=== PATIENT | male | born 1950 | race Caucasian/White ===

== ENCOUNTER 2016-08-24 19:39 | Emergency (ER) | payer OTHER, MEDICARE ==
[~2016-08-24] VITALS: Ht 182.9 cm; Wt 95.3 kg
[~2016-08-24 19:39] MED LIST: ALBUTEROL0.09 MG/A1 INH; CLINDAMYCIN HY300 MG PO; CYCLOBENZAPRINE10 M1 PO; DIAZEPAM2 M1 PO; FLEXERIL10 MG PO; IBUPROFEN600 M1 PO; MOTRIN 600 MG600 MG PO; OLANZAPINE10 MG PO; PREDNISONE 20MG20 MG PO; PRILOSEC OTC20 MG PO; TRAMADOL HCL50 M1 PO; TRAMADOL50 MG PO
[2016-08-24 20:22] LABS: ABSOLUTE BASOPHIL COUNT 0.1 /CUMM (0.0-0.2); ABSOLUTE EOSINOPHIL COUNT 0.5 /CUMM (0.0-0.7); ABSOLUTE GRANULOCYTE CT 6.1 /CUMM (1.4-6.5); ABSOLUTE MONOCYTE COUNT 0.7 /CUMM (0.10-0.60); BASOPHIL % 1.4 % (0.0-2.0); EOSINOPHIL % 5.1 % (0-5); GRANULOCYTE % 65.2 % (42.2-75.2); HEMATOCRIT 49.3 % (42-52); MEAN CORPUSCULAR HGB 31.2 PG (27.0-31.0); MEAN CORPUSCULAR HGB CONC 34.1 G/DL (33.0-37.0); MEAN CORPUSCULAR VOLUME 91.6 FL (80.0-94.0); MEAN PLATELET VOLUME 9.5 FL (7.4-10.4); PLATELET COUNT 158 /CUMM (130-400); RBC DISTRIBUTION WIDTH 13.5 % (11.5-14.5); RED BLOOD CELL CT 5.38 /CUMM (4.70-6.10); WHITE BLOOD CELL COUNT 9.3 /CUMM (4.8-10.8)
--- NOTE | 2016-08-24 20:43 | RADIOLOGY REPORT ---
EXAMINATION: XR CHEST CLINICAL INFORMATION: Cough. COMPARISON: CTA 06/22/2015. TECHNIQUE: 2 views of the chest were obtained. FINDINGS: Both lungs are hyperinflated without consolidation. There are increased bronchovascular markings probably chronic interstitial changes there is no pleural effusion. The heart size and pulmonary vascularity is normal. No gross bony abnormality seen. IMPRESSION: Emphysema with chronic interstitial changes without acute consolidation. Similar findings were seen on 06/22/2015.
--- NOTE | 2016-08-24 20:57 | ED DYSPNEA/ASTHMA COMPLAINT ---
History of Present Illness General Chief Complaint: Dyspnea (COPD, CHF, Other) Stated Complaint: SOB Source: patient, old records Exam Limitations: no limitations Vital Signs & Intake/Output Vital Signs & Intake/Output Vital Signs Date Time Temp Pulse Resp B/P Pulse O2 O2 Flow FiO2 Ox Delivery Rate 08/24 2151 93 08/25 1943 97.1 109 15 126/89 95 Room Air Allergies Coded Allergies: Penicillins (Severe, ANAPHYLAXIS 11/24/15) Sulfa (Sulfonamide Antibiotics) (Severe, TONGUE SWELLING, HIVES 11/24/15) penicillin G (Severe, ANAPHYLAXIS 11/24/15) codeine (TACHYCARDIA 11/24/15) Reconcile Medications Albuterol Sulfate (Proair Hfa) 90 MCG HFA.AER.AD 2 PUF INH Q4-6 PRN PRN DYSPNEA Albuterol Sulfate (Proair Hfa) 90 MCG HFA.AER.AD 2 PUF INH Q4-6 PRN PRN DYSPNEA Albuterol Sulfate (Albuterol Sulfate Hfa) 90 MCG HFA.AER.AD 2 PUFF INH Q4-6 PRN PRN SHORTNESS OF BREATH 90 MCG PER PUFF Clindamycin HCl 150 MG CAPSULE 1 CAP PO TID TOOTH FRACTURE Diazepam 2 MG TABLET 1 TAB PO BID PRN ANXIETY (Reported) Doxycycline Hyclate 100 MG TABLET 1 TAB PO BID BRONCHITIS Ibuprofen 600 MG TABLET 1 TAB PO Q6H PRN abdomial pain with food Olanzapine 10 MG TAB 1 TAB PO QAM MENTAL HEALTH (Reported) Olanzapine 10 MG TABLET 1 TAB PO QPM DEPRESSION/BIPOLAR (Reported) Oxycodone HCl/Acetaminophen (Percocet 5-325 MG Tablet) 5 MG-325 MG TABLET 1 TAB PO BID PRN PAIN Triage Note: PT TO ED FOR 3 DAYS OF NON PRODUCTIVE, DRY COUGH AND SOB. 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 Triage Nurses Notes Reviewed? yes Onset: Abrupt Duration: day(s): (3) Timing: multiple episodes today Severity: moderate Associated Symptoms: cough, SHORTNESS OF BREATH HPI: 66-year-old male who presents to the ER for chief complaint of sudden onset of upper nasal congestion. Denies any fever or chills. Denies feeling short of breath but admits to some chronic cough. He is a 1-1/2 pack per day smoker. No chest pain or palpitations. Denies any abdominal pain. Positive sick contacts at home with similar symptoms. Found to be wheezing in triage. History of PE in 2010 and just came off blood thinners 2 years ago. PE was as a result of a DVT secondary to sprain ankle. Denies any history of clotting disorders. Past History Travel History Traveled to [place] past 21 day No Medical History Any Pertinent Medical History? 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 No Review of Systems Review of Systems Constitutional: Denies: chills, fever. EENTM: Reports: nasal congestion. Respiratory: Reports: cough, short of breath. Cardiovascular: Denies: chest pain, palpitations, peripheral edema. GI: Denies: abdominal pain, diarrhea, nausea, vomiting. Genitourinary: Reports: no symptoms. Musculoskeletal: Reports: no symptoms. Skin: Denies: rash. Neurological/Psychological: Reports: no symptoms. Hematologic/Endocrine: Denies: bruising, bleeding, polyuria, polydipsia. Immunologic/Allergic: Denies: splenectomy. All Other Systems: Reviewed and Negative Physical Exam Physical Exam General Appearance: well developed/nourished, awake, mild distress Head: normal appearance Eyes: Bilateral: normal appearance, PERRL, pale conjunctivae. Ears, Nose, Throat: normal pharynx, normal ENT inspection, hearing grossly normal Neck: normal inspection, supple, full range of motion Respiratory: decreased breath sounds, accessory muscle use, wheezing Cardiovascular: tachycardia Peripheral Pulses: 2+ radial (R), 2+ radial (L) Gastrointestinal: soft, non-tender Extremities: normal inspection, normal capillary refill, normal range of motion, no edema Neurologic/Psych: awake, alert, oriented x 3 Skin: intact, normal color, warm/dry, cyanosis, diaphoresis, ecchymosis, jaundice, mottled, pallor, rash Core Measures ACS in differential dx? No Severe Sepsis Present: No Septic Shock Present: No Progress Differential Diagnosis: bronchitis, CHF, COPD, pulmonary embolism, pneumonia Plan of Care: Orders Procedure Date/time Status RT ED ORDERS 08/24 2113 Active RAPID VIRAL INFLUENZA A 08/24 2113 Complete THROAT CULTURE W/QUICK STREP 08/24 2113 Active URINALYSIS 08/25 2107 Complete TROPONIN LEVEL 08/25 1951 Complete COMPREHENSIVE METABOLIC PANEL 08/25 1951 Complete CBC WITHOUT DIFFERENTIAL 08/25 1951 Complete EKG 08/24 1944 Active Laboratory Tests 08/24/162126: Urine Color STRAW, Urine Clarity CLEAR, Urine pH 6.0, Ur Specific [place] <= 1.005, Urine Protein NEG, Urine Ketones NEG, Urine Nitrite NEG, Urine Bilirubin NEG, Urine Urobilinogen 0.2, Ur Leukocyte Esterase NEG, Ur Microscopic EXAM NOT REQUIRED, Urine Hemoglobin NEG, Urine Glucose NEG 08/24/162000: Anion Gap 15, Estimated GFR > 60, BUN/Creatinine Ratio 10.0, Glucose 103 H, Calcium 8.8, Total Bilirubin 1.3, AST 33, ALT 26, Alkaline Phosphatase 99, Troponin I < 0.01, Total Protein 7.7, Albumin 4.6, Globulin 3.1, Albumin/ Globulin Ratio 1.5, CBC w Diff NO MAN DIFF REQ, RBC 5.38, MCV 91.6, MCH 31.2 H, RDW 13.5, MPV 9.5, Gran % 65.2, Lymphocytes % 21.2, Monocytes % 7.1, Eosinophils % 5.1 H, Basophils % 1.4, Absolute Granulocytes 6.1, Absolute Lymphocytes 2.0, Absolute Monocytes 0.7 H, Absolute Eosinophils 0.5, Absolute Basophils 0.1, PUBS MCHC 34.1 Microbiology 08/24 2122 NASOPHARYN: Influenza Virus A & B Rapid Smear - COMP solumedrol, duoneb, cxr, labs, quick strep ordered 10:40 PM PATIENT FEELING BETTER AFTER TREATMENT. STABLE FOR DISCHARGE HOME. IMPROVED AERATION. (KATHI KANG,ADRIAN) Diagnostic Imaging: Viewed by Me: Radiology Read. Discussed w/RAD: Radiology Read. CXR Impression: PATIENT: NELSON HEARD PRESENT AGE: 66 PATIENT ACCOUNT NO: [id number] : 52 LOCATION: [facility] ORDERING PHYSICIAN: ADRIAN ARMENTA MD SERVICE DATE: 08/24/16 EXAM TYPE: RAD - XRY-CHEST XRAY , PA AND LATERAL EXAMINATION: XR CHEST CLINICAL INFORMATION: Cough. COMPARISON: CTA 06/22/2015. TECHNIQUE: 2 views of the chest were obtained. FINDINGS: Both lungs are hyperinflated without consolidation. There are increased bronchovascular markings probably chronic interstitial changes there is no pleural effusion. The heart size and pulmonary vascularity is normal. No gross bony abnormality seen. IMPRESSION: Emphysema with chronic interstitial changes without acute consolidation. Similar findings were seen on 06/22/2015. DICTATED BY: AFRICA CUNNINGHAM MD DATE/TIME DICTATED:08/24/162036 CUSTOMER SERVICE AND SALES CONSULTANT:GILBERTO DATE/TIME TRANSCRIBED:08/24/162036 CONFIDENTIAL, DO NOT COPY WITHOUT APPROPRIATE AUTHORIZATION. <Electronically signed in Other Vendor System> SIGNED BY: AFRICA CUNNINGHAM MD 08/24/162042 Initial ED EKG: SINUS TACHYCARDIA Departure Departure Time of Disposition: 2203 Disposition: HOME OR SELF CARE Condition: Stable Clinical Impression Primary Impression: COPD exacerbation Secondary Impressions: Hyponatremia Referrals: ALFREDO KANG,VENTURA Bryson (PCP/Family) DEMETRIO KANG,Yas PEREZ Additional Instructions: Take the Medrol dose pack, antibiotic and use the inhaler as directed. Have your blood work drawn on Wednesday and call Dr. Barnhart's office in the afternoon for results for your repeat sodium. Return immediately to the ER for worsening cough, shortness of breath, fever or feeling shaky or dizzy. Avoid excessive free water intake as we discussed. Departure Forms: Customer Survey General Discharge Information Prescriptions: Current Visit Scripts Albuterol Sulfate (Proair Hfa) 2 PUF INH Q4-6 PRN PRN DYSPNEA #1 INHAL Albuterol Sulfate (Proair Hfa) 2 PUF INH Q4-6 PRN PRN DYSPNEA #1 INHAL Doxycycline Hyclate 1 TAB PO BID #20 TAB Critical Care Note Critical Care Note Critical Care Time: non-applicable
[2016-08-24] MEDS ORDERED: PROAIR HFA8.5 GM INH (22:06)
[2016-08-24] MEDS ORDERED: DOXYCYCLINE HY100 M4 PO (22:06)
[2016-08-24] MEDS ORDERED: MEDROL4 M2 PO (22:06)
[2016-08-24 22:07] VITALS: BP 134/68
== END 2016-08-24 22:44 ==
LOC: ERH 19:39
PROVIDERS: Emergency Medicine
DX: J44.1 Chronic obstructive pulmonary disease with (acute) exacerbation (principal); E87.1 Hypo-osmolality and hyponatremia; F17.210 Nicotine dependence, cigarettes, uncomplicated
CPT/HCPCS: 1263; 81003; 87804; 87804-59; 93005; 93010; 96361; 96374; J2930

== ENCOUNTER 2016-09-01 11:09 | Emergency (ER) | payer OTHER, MEDICARE ==
[~2016-09-01] VITALS: Ht 182.9 cm; Wt 95.3 kg
[~2016-09-01 11:09] MED LIST changes: +DOXYCYCLINE HY100 M4 PO; +MEDROL4 M2 PO; +PROAIR HFA8.5 GM INH
[2016-09-01 11:28] VITALS: BP 162/98
[2016-09-01] MEDS ORDERED: OLANZAPINE10 M1 PO (11:35)
--- NOTE | 2016-09-01 12:14 | ED THROAT/DENTAL COMPLAINT ---
History of Present Illness General Chief Complaint: Sore Throat, Dental Pain Stated Complaint: TOOTH PAIN Source: patient Exam Limitations: no limitations Vital Signs & Intake/Output Vital Signs & Intake/Output Vital Signs Date Time Temp Pulse Resp B/P Pulse O2 O2 Flow FiO2 Ox Delivery Rate 09/01 1128 98.7 108 16 162/98 96 Room Air Allergies Coded Allergies: Penicillins (Severe, ANAPHYLAXIS 11/24/15) Sulfa (Sulfonamide Antibiotics) (Severe, TONGUE SWELLING, HIVES 11/24/15) penicillin G (Severe, ANAPHYLAXIS 11/24/15) codeine (TACHYCARDIA 11/24/15) Triage Note: PT STATES HE HAS A TOOTH ACHE THAT STARTED LAST NIGHT AFTER HIS TOOTH SPLIT AND FELL OUT. Triage Nurses Notes Reviewed? yes HPI: This patient is a 66-year-old male who presented to the emergency department today for evaluation of dental pain. The patient reported that on Wednesday she was eating hard candy when he cracked one of his bottom left teeth. He reported that part of the tooth fell out. He reported that since that time he has been having pain in his left upper dentition. The pain gets up to a 10 out of 10, sharp and throbbing, and radiates up towards his left ear. The pain is constant. He does have an appointment with his dentist on Wednesday. The patient denied any fevers or chills. No chest pain or difficulty breathing. (JIMMIE CHIRINOS,EVANS) Reconcile Medications Albuterol Sulfate (Proair Hfa) 90 MCG HFA.AER.AD 2 PUF INH Q4-6 PRN PRN DYSPNEA Albuterol Sulfate (Proair Hfa) 90 MCG HFA.AER.AD 2 PUF INH Q4-6 PRN PRN DYSPNEA Albuterol Sulfate (Albuterol Sulfate Hfa) 90 MCG HFA.AER.AD 2 PUFF INH Q4-6 PRN PRN SHORTNESS OF BREATH 90 MCG PER PUFF Clindamycin HCl 150 MG CAPSULE 1 CAP PO TID TOOTH FRACTURE Diazepam 2 MG TABLET 1 TAB PO BID PRN ANXIETY (Reported) Doxycycline Hyclate 100 MG TABLET 1 TAB PO BID BRONCHITIS Ibuprofen 600 MG TABLET 1 TAB PO Q6H PRN abdomial pain with food Olanzapine 10 MG TAB 1 TAB PO QAM MENTAL HEALTH (Reported) Olanzapine 10 MG TABLET 1 TAB PO QPM DEPRESSION/BIPOLAR (Reported) Oxycodone HCl/Acetaminophen (Percocet 5-325 MG Tablet) 5 MG-325 MG TABLET 1 TAB PO BID PRN PAIN (ALISHA KANG,GWENDOLYN) Past History Travel History Traveled to [place] past 21 day No Medical History Any Pertinent Medical History? 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 No (EVANS SAMUEL PA-C) Review of Systems Review of Systems Constitutional: Reports: no symptoms. EENTM: Reports: see HPI. Respiratory: Reports: no symptoms. Cardiovascular: Reports: no symptoms. GI: Reports: no symptoms. Genitourinary: Reports: no symptoms. Musculoskeletal: Reports: no symptoms. Skin: Reports: no symptoms. Neurological/Psychological: Reports: no symptoms. All Other Systems: Reviewed and Negative (EVANS SAMUEL PA-C) Physical Exam Physical Exam Mouth/Throat: POOR DENTITION WITH CARIOUS TEETH. nO ORAL PHARYNGEAL LESIONS OR EDEMA. tENDERNESS TO PALPATION OVER THE 16TH TOOTH. mILD AMOUNT OF SURROUNDING GINGIVAL ERYTHEMA. nO EVIDENCE OF ABSCESS FORMATION OR EDEMA. Comments: Well-developed well-nourished person in no acute distress HEENT: Normal EENT exam, moist mucous membranes Pupils equally round and reactive to light. Neck: Supple, no lymphadenopathy. No midline tenderness Back: Normal gait Cardiovascular: Regular rate and rhythm with no murmurs, rubs, or gallops Respiratory: No respiratory distress. Breath sounds clear to auscultation bilaterally Neuro: Alert oriented x3, cranial nerves II through XII grossly intact. Skin: No appreciable rash on exposed skin, skin is warm and dry. Psych: Mood and affect is normal Core Measures ACS in differential dx? No Severe Sepsis Present: No Septic Shock Present: No (EVANS SAMUEL PA-C) Progress Differential Diagnosis: aspirated tooth, carious tooth, Ludwigs angina, meningitis, odontogenic abscess, mag-tonsillar abscess, pharyngeal for. body, tooth fracture Plan of Care: This patient is a 66-year-old male who presented for evaluation of tooth pain. This patient cracked his tooth eating a hard candy. He has an appointment with his dentist. Mild gingival erythema. He is afebrile. Stable for outpatient management with his dentist. (EVANS SAMUEL PA-C) Departure Departure Disposition: HOME OR SELF CARE Condition: Stable Clinical Impression Primary Impression: Tooth pain Referrals: ALFREDO KANG,VENTURA Bryson (PCP/Family) Additional Instructions: Take medication for pain as prescribed. Take antibiotic as prescribed. Please follow-up with your dentist as directed. Return for any worsening symptoms or concerns. Departure Forms: Customer Survey General Discharge Information Prescriptions: Current Visit Scripts Oxycodone HCl/Acetaminophen (Percocet 5-325 MG Tablet) 1 TAB PO BID PRN PAIN #8 TAB Clindamycin HCl 1 CAP PO TID #15 CAP (EVANS SAMUEL PA-C) PA/YOUTH COUNSELOR Co-Sign Statement Statement: ED Attending supervision documentation- x I saw and evaluated the patient. I have also reviewed all the pertinent lab results and diagnostic results. I agree with the findings and the plan of care as documented in the PA's/YOUTH COUNSELOR's documentation. [] I have reviewed the ED Record and agree with the PA's/YOUTH COUNSELOR's documentation. [] Additions or exceptions (if any) to the PAs/YOUTH COUNSELOR's note and plan are summarized below: [] (ALISHA KANG,GWENDOLYN)
[2016-09-01] MEDS ORDERED: PERCOCET 5-3251 EACH PO (12:17)
[2016-09-01] MEDS ORDERED: CLINDAMYCIN HC150 M1 PO (12:17)
== END 2016-09-01 12:23 ==
LOC: ERH 11:09
DX: K08.89 Other specified disorders of teeth and supporting structures (principal)

== ENCOUNTER 2016-10-31 12:45 | Emergency (ER) | payer OTHER, MEDICARE ==
[~2016-10-31] VITALS: Ht 182.9 cm; Wt 95.3 kg
[~2016-10-31 12:45] MED LIST changes: +CLINDAMYCIN HC150 M1 PO; +OLANZAPINE10 M1 PO; +PERCOCET 5-3251 EACH PO
[2016-10-31 13:05] LABS: ABSOLUTE BASOPHIL COUNT 0 /CUMM (0.0-0.2); ABSOLUTE EOSINOPHIL COUNT 0.1 /CUMM (0.0-0.7); ABSOLUTE GRANULOCYTE CT 6.2 /CUMM (1.4-6.5); ABSOLUTE LYMPH COUNT 1.1 /CUMM (1.2-3.4); ABSOLUTE MONOCYTE COUNT 0.8 /CUMM (0.10-0.60); BASOPHIL % 0.4 % (0.0-2.0); EOSINOPHIL % 0.7 % (0-5); GRANULOCYTE % 75.8 % (42.2-75.2); HEMATOCRIT 46.3 % (42-52); MEAN CORPUSCULAR HGB 31.5 PG (27.0-31.0); MEAN CORPUSCULAR HGB CONC 34.2 G/DL (33.0-37.0); MEAN PLATELET VOLUME 8.6 FL (7.4-10.4); PLATELET COUNT 137 /CUMM (130-400); RBC DISTRIBUTION WIDTH 14.7 % (11.5-14.5); RED BLOOD CELL CT 5.04 /CUMM (4.70-6.10); WHITE BLOOD CELL COUNT 8.1 /CUMM (4.8-10.8)
--- NOTE | 2016-10-31 13:54 | ED GENERAL ADULT ---
History of Present Illness General Chief Complaint: Abdominal Pain/Flank Pain Stated Complaint: ABD PAIN Source: patient Exam Limitations: no limitations Vital Signs & Intake/Output Vital Signs & Intake/Output Vital Signs Date Time Temp Pulse Resp B/P B/P Pulse O2 O2 Flow FiO2 Mean Ox Delivery Rate 10/31 1403 99 Room Air 10/31 1254 98.9 102 18 175/100 96 Room Air Room Air Allergies Coded Allergies: Penicillins (Severe, ANAPHYLAXIS 11/24/15) Sulfa (Sulfonamide Antibiotics) (Severe, TONGUE SWELLING, HIVES 11/24/15) penicillin G (Severe, ANAPHYLAXIS 11/24/15) codeine (TACHYCARDIA 11/24/15) Triage Note: TRIAGE: 66 Y/O MALE PRESENTS WITH A MYRIAD OF COMPLAINTS: HEADACHE, "DON'T FEEL SO GOOD", SICK ROOMMATE AT HOME, ABDOMINAL PAIN, RAN OUT OF MEDICATIONS AT HOME. Triage Nurses Notes Reviewed? yes HPI: 66-year-old male with a history of hep C, bipolar disorder, PE, hiatal hernia presenting with abdominal pain/distention times since yesterday. Reports achy pain to lower abdomen, no worsening or alleivating factors. Endorses nausea, but no vomiting. Denies fevers, diarrhea, melena, no blood stools, no dysuria, no hematuria. Last BM was yesterday and normal. Denies prior abdominal surgeries. Reports recent sick contacts - his roommate and neighbor have the same symptoms, states he thinks its from contaminated city water. Patient also reports that he stopped taking his olanzapine. (AMPARO CHIRINOS,DAVID) Reconcile Medications Albuterol Sulfate (Proair Hfa) 90 MCG HFA.AER.AD 2 PUF INH Q4-6 PRN PRN DYSPNEA Albuterol Sulfate (Proair Hfa) 90 MCG HFA.AER.AD 2 PUF INH Q4-6 PRN PRN DYSPNEA Albuterol Sulfate (Albuterol Sulfate Hfa) 90 MCG HFA.AER.AD 2 PUFF INH Q4-6 PRN PRN SHORTNESS OF BREATH 90 MCG PER PUFF Clindamycin HCl 150 MG CAPSULE 1 CAP PO TID TOOTH FRACTURE Diazepam 2 MG TABLET 1 TAB PO BID PRN ANXIETY (Reported) Doxycycline Hyclate 100 MG TABLET 1 TAB PO BID BRONCHITIS Ibuprofen 600 MG TABLET 1 TAB PO Q6H PRN abdomial pain with food Olanzapine 10 MG TAB 1 TAB PO QAM MENTAL HEALTH (Reported) Olanzapine 10 MG TABLET 1 TAB PO QPM DEPRESSION/BIPOLAR (Reported) Olanzapine 10 MG TABLET 1 TAB PO QPM mental health Oxycodone HCl/Acetaminophen (Percocet 5-325 MG Tablet) 5 MG-325 MG TABLET 1 TAB PO BID PRN PAIN (JOEL CHAPMAN) Past History Travel History Traveled to [place] past 21 day No Medical History Any Pertinent Medical History? 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 No (DAIVD CHRISTENSEN PA-C) Review of Systems Review of Systems Constitutional: Reports: no symptoms. Respiratory: Reports: no symptoms. Cardiovascular: Reports: no symptoms. GI: Reports: abdominal pain, bloating. Denies: constipation, diarrhea, nausea, vomiting. Genitourinary: Reports: no symptoms. Musculoskeletal: Reports: no symptoms. Neurological/Psychological: Reports: no symptoms. (DAVID CHRISTENSEN PA-C) Physical Exam Physical Exam General Appearance: well developed/nourished, no apparent distress, awake, comfortable Head: atraumatic Respiratory: normal breath sounds, lungs clear Cardiovascular: regular rate/rhythm, normal peripheral pulses Gastrointestinal: normal bowel sounds, soft, non-tender, no organomegaly, no abdominal distention Neurologic/Psych: awake, alert, oriented x 3, normal mood/affect Skin: intact, normal color Core Measures ACS in differential dx? No CVA/TIA Diagnosis: No Severe Sepsis Present: No Septic Shock Present: No (DAVID CHRISTENSEN PA-C) Progress Differential Diagnoses I considered the following diagnoses in my evaluation of the patient: [ Gastroenteritis versus biliary versus pancreatitis versus appendicitis versus colitis .] Plan of Care: Orders Procedure Date/time Status Add-on Test (ER Only) 10/31 1515 Active URINE DRUGS OF ABUSE 10/31 1318 Complete ETHANOL 10/31 1257 Complete URINALYSIS 10/31 1251 Complete LIPASE 10/31 1251 Complete COMPREHENSIVE METABOLIC PANEL 10/31 1251 Complete CBC WITHOUT DIFFERENTIAL 10/31 1251 Complete AMYLASE 10/31 1251 Complete Laboratory Tests 10/31/16 1318: Urine Opiates Screen < 100.00, Methadone Screen < 40, Barbiturate Screen < 60, Ur Phencyclidine Scrn < 6.00, Amphetamines Screen < 100, U Benzodiazepines Scrn 93, Urine Cocaine Screen < 50, Urine Cannabis Screen < 5.00, Urine Color YEL, Urine Clarity CLEAR, Urine pH 7.0, Ur Specific [place] <= 1.005, Urine Protein NEG, Urine Ketones NEG, Urine Nitrite NEG, Urine Bilirubin NEG, Urine Urobilinogen 0.2, Ur Leukocyte Esterase NEG, Ur Microscopic EXAM NOT REQUIRED, Urine Hemoglobin NEG, Urine Glucose NEG 10/31/16 1257: Anion Gap 9, Estimated GFR > 60, BUN/Creatinine Ratio 7.1, Glucose 118 H, Calcium 9.0, Total Bilirubin 1.5 H, AST 32, ALT 24, Alkaline Phosphatase 123, Total Protein 7.2, Albumin 4.1, Globulin 3.1, Albumin/Globulin Ratio 1.3, Amylase 67, Lipase 75, CBC w Diff NO MAN DIFF REQ, RBC 5.04, MCV 92.0, MCH 31.5 H, RDW 14.7 H, MPV 8.6, Gran % 75.8 H, Lymphocytes % 13.4 L, Monocytes % 9.7 H, Eosinophils % 0.7, Basophils % 0.4, Absolute Granulocytes 6.2, Absolute Lymphocytes 1.1 L, Absolute Monocytes 0.8 H, Absolute Eosinophils 0.1, Absolute Basophils 0, PUBS MCHC 34.2, Serum Alcohol < 10.0 Labs notable for hyponatremia to 128. On chart review the patient appears to have chronic hyponatremia in the 120s, with no neurologic affect. Patient is alert and oriented 3 with no neuro deficits. Spoke with hospitalist and there is no indication for admission as the condition appears chronic. Intra-abdominal pathologies CONSIDERED however doubt intra-abdominal pathology as patient has benign abdominal exam with reassuring labs and urine. Concern for psychosis as patient has recently stopped taking his olanzapine. Crisis consult pending and patient signed out to NIRALI Szymanski. (DAVID CHRISTENSEN PA-C) Case was discussed and signed out to me at 1500, patient is chronically hyponatremic he is declining wishing to speak with crisis he denies suicidal or homicidal ideation. He is not up expressing any psychotic features at this time he is alert and oriented 3. The patient has an appointment with his psychiatrist scheduled for 3 days from now we will provide him with a prescription refill of his Zyprexa I discussed with the patient at length all of their results. I had an extensive conversation regarding need for close follow up with their primary care physician this week as well as return precautions. I answered all of their questions, they feel comfortable with the plan and follow-up care. I discussed with the patient/family the medications that they will receive. I gave them signs and symptoms that could indicate an adverse reaction. I have advised them to limit their activities until they can see how they respond to the medication. (JOEL CHAPMAN) Initial ED EKG: none (DAVID CHRISTENSEN PA-C) Differential Diagnoses I considered the following diagnoses in my evaluation of the patient: (JOEL CHAPMAN) Departure Departure Disposition: STILL A PATIENT Condition: Stable Referrals: ALFREDO KANG,VENTURA Bryson (PCP/Family) Departure Forms: Customer Survey General Discharge Information (DAVID CHRISTENSEN PA-C) Departure Clinical Impression Primary Impression: Abdominal pain Secondary Impressions: Hyponatremia Additional Instructions: Follow-up as scheduled with your doctor on the . Zyprexa as directed this was sent to [facility]. drink plenty of fluids. Return to ER anytime sooner with any concerns Prescriptions: Current Visit Scripts Olanzapine 1 TAB PO QPM #30 TAB (JOEL CHAPMAN) Critical Care Note Critical Care Note Critical Care Time: non-applicable (DAVID CHRISTENSEN PA-C)
[2016-10-31] MEDS ORDERED: OLANZAPINE10 M1 PO (15:54)
[2016-10-31 16:15] VITALS: BP 145/95
== END 2016-10-31 16:34 ==
LOC: ERH 12:45
PROVIDERS: Emergency Medicine
DX: R10.30 Lower abdominal pain, unspecified (principal); E87.1 Hypo-osmolality and hyponatremia; Z91.14 Patient's other noncompliance with medication regimen; F10.10 Alcohol abuse, uncomplicated
CPT/HCPCS: 80307; 81003; G0480